=== PATIENT | male | born 1940 | race Caucasian/White ===

== ENCOUNTER 2019-12-17 12:49 | Inpatient (IN) | payer MEDICARE, MEDICAID ==
[~2019-12-17] VITALS: Ht 170.2 cm; Wt 63.2 kg
[~2019-12-17 12:49] MED LIST: CLARITIN10 MG PO; DELTASONE5 MG; DIFLUCAN150 MG PO; EES400 MG PO; ELIMITE 5%60 GM PO; KENALOG 0.025%15 GM PO; LINDANE60 ML TP; LOPRESSOR50 M1 PO; LOPRESSOR50 MG PO; ORAP1 MG PO; PALMITATE-A5000 IU PO; VITAMIN C1 TAB PO; ZITHROMAX Z PA250 MG PO; [UNRECOGNIZED DRUG - OTHER] PO; [UNRECOGNIZED DRUG - OTHER] PO
[2019-12-17 12:50] VITALS: BP 106/77
[2019-12-17] MEDS ORDERED: AMLODIPINE BESYL5 MG PO (13:40)
[2019-12-17] MEDS ORDERED: COZAAR50 M1 PO (13:42)
[2019-12-17 13:43] LABS: HEMATOCRIT 44.6 % (42.0-52.0); HEMOGLOBIN 14.8 g/dl (14.0-18.0); MEAN CELL VOLUME 95.5 fl (80.0-94.0); MEAN CORPUSCULAR HGB 31.7 pg (27.0-31.0); MEAN CORPUSCULAR HGB CONC 33.2 g/dl (33.0-37.0); MEAN PLATELET VOLUME 10.9 fl (9.6-12.3); PLATELET COUNT AUTOMATED 257 10*3/uL (130-400); RED BLOOD COUNT 4.67 10*6/uL (4.50-5.90); WHITE BLOOD COUNT 20.3 10*3/uL (4.8-10.8)
[2019-12-17] MEDS ORDERED: SODIUM CHLORIDE1 GM PO (13:43)
[2019-12-17] MEDS ORDERED: FEROSUL325 MG PO (13:44)
[2019-12-17] MEDS ORDERED: HYDROXYZINE HCL25 MG PO (13:45)
[2019-12-17 13:54] LABS: ALBUMIN 3.5 gm/dl (3.1-4.5); CREATININE 1.46 mg/dL (0.70-1.30); POTASSIUM 3.8 mmol/L (3.5-5.1); TOTAL PROTEIN 7.3 gm/dL (6.4-8.2)
[2019-12-17 13:57] LABS: OVALOCYTES FEW; PLATELET SUFFICIENCY NORMAL (NORMAL); POLYCHROMASIA SLIGHT; TOTAL CELLS COUNTED 100 #CELLS
[2019-12-17 14:41] LABS: CLARITY CLEAR (CLEAR); COLOR YELLOW (YELLOW); GLUCOSE NEGATIVE (NEGATIVE)
[2019-12-17 14:42] LABS: BILIRUBIN NEGATIVE (NEGATIVE); BLOOD 3+ (NEGATIVE); EPITHELIAL CELLS 0-2; KETONE TRACE (NEGATIVE); LEUKO ESTERASE TRACE (NEGATIVE); NITRITE NEGATIVE (NEGATIVE); RBC 0-2 rbc/hpf (0-2); UROBILINOGEN 0.2 E.U./dl (0.2-1.0)
[2019-12-17 14:43] LABS: BACTERIA 2+; HYALINE CAST 0-2; MUCOUS TRACE
[2019-12-17 16:00] VITALS: BP 160/43
[2019-12-17 17:00] VITALS: BP 152/78
[2019-12-17 17:30] VITALS: BP 110/60
[2019-12-17 19:14] VITALS: BP 118/86
[2019-12-17 20:35] VITALS: BP 138/72
[2019-12-18] VITALS: BP 121/82
[2019-12-18 07:07] LABS: HEMATOCRIT 40.7 % (42.0-52.0); HEMOGLOBIN 13.5 g/dl (14.0-18.0); MEAN CELL VOLUME 96.7 fl (80.0-94.0); MEAN CORPUSCULAR HGB 32.1 pg (27.0-31.0); MEAN CORPUSCULAR HGB CONC 33.2 g/dl (33.0-37.0); MEAN PLATELET VOLUME 11.1 fl (9.6-12.3); PLATELET COUNT AUTOMATED 229 10*3/uL (130-400); RED BLOOD COUNT 4.21 10*6/uL (4.50-5.90); RED CELL DISTRI WIDTH 14.6 % (0-14.5)
[2019-12-18 07:30] LABS: ALBUMIN 2.9 gm/dl (3.1-4.5); ALKALINE PHOSPHATASE 100 U/L (45-117); CHLORIDE 111 mmol/L (98-107); CHOLESTEROL 157 mg/dL (<200); CREATININE 0.99 mg/dL (0.70-1.30); FREE T4 1.16 ng/dl (0.76-1.46); HDL CHOLESTEROL 78 mg/dl (40-60); LDL CHOLESTEROL 65 mg/dL (9-159); PHOSPHOROUS 2.4 mg/dL (2.5-4.9); POTASSIUM 3.9 mmol/L (3.5-5.1); SGOT/AST 185 IU/L (3-35); SGPT/ALT 107 U/L (12-78); SODIUM 144 mmol/L (136-145); TOTAL PROTEIN 6.5 gm/dL (6.4-8.2); TRIGLYCERIDES 72 mg/dl (<150); VLDL CHOLESTEROL 14 mg/dL (6-40)
[2019-12-18 07:38] LABS: VITAMIN D, 25-HYDROXY 114.1 ng/mL (30-100)
[2019-12-18 07:54] LABS: BUN 46 mg/dl (7-24)
[2019-12-18 08:01] LABS: PLATELET SUFFICIENCY NORMAL (NORMAL); TOTAL CELLS COUNTED 100 #CELLS; VACUOLATION OF NEUTROPHILS SLIGHT
[2019-12-18 08:02] LABS: POLYCHROMASIA SLIGHT
[2019-12-18 12:00] VITALS: BP 121/59
[2019-12-18 16:00] VITALS: BP 132/80
[2019-12-18 20:00] VITALS: BP 150/65
[2019-12-19] VITALS: BP 125/74
[2019-12-19 06:19] LABS: BASO % 0.2 % (0.0-1.0); HEMATOCRIT 38.5 % (42.0-52.0); HEMOGLOBIN 12.5 g/dl (14.0-18.0); LYMPH # 1.3 10*3/uL (1.3-4.4); LYMPH % 11.8 % (27.0-41.0); MEAN CORPUSCULAR HGB 31.5 pg (27.0-31.0); MEAN CORPUSCULAR HGB CONC 32.5 g/dl (33.0-37.0); MEAN PLATELET VOLUME 11.7 fl (9.6-12.3); MONO # 1.1 10*3/uL (0.1-1.0); MONO % 10.2 % (3.0-9.0); NEUT # 8.7 10*3/uL (2.3-7.9); NEUT % 77.3 % (47.0-73.0); PLATELET COUNT AUTOMATED 183 10*3/uL (130-400); RED BLOOD COUNT 3.97 10*6/uL (4.50-5.90); RED CELL DISTRI WIDTH 14.5 % (0-14.5); WHITE BLOOD COUNT 11.2 10*3/uL (4.8-10.8)
[2019-12-19 06:37] LABS: ALBUMIN 2.7 gm/dl (3.1-4.5); ALKALINE PHOSPHATASE 86 U/L (45-117); CHLORIDE 111 mmol/L (98-107); CREATININE 0.62 mg/dL (0.70-1.30); POTASSIUM 3.9 mmol/L (3.5-5.1); SGOT/AST 125 IU/L (3-35); SGPT/ALT 105 U/L (12-78); SODIUM 143 mmol/L (136-145); TOTAL PROTEIN 6.1 gm/dL (6.4-8.2)
[2019-12-19 06:53] LABS: BUN 28 mg/dl (7-24); CPK 1499 U/L (39-308)
[2019-12-19 12:00] VITALS: BP 148/84
[2019-12-19 16:00] VITALS: BP 133/83
[2019-12-19 20:00] VITALS: BP 144/86
[2019-12-20] VITALS: BP 131/81
[2019-12-20 06:06] LABS: HEP B CORE AB, IGM Negative (Negative); HEPATITIS B SURFACE AG Negative (Negative); HEPATITIS C VIRUS ANTIBODY <0.1 s/co (0.0-0.9)
[2019-12-20 07:13] LABS: BASO % 0.2 % (0.0-1.0); EOS # 0.1 10*3/uL (0.0-0.4); EOS % 0.5 % (1.0-4.0); HEMATOCRIT 34.6 % (42.0-52.0); HEMOGLOBIN 11.1 g/dl (14.0-18.0); LYMPH # 1.6 10*3/uL (1.3-4.4); LYMPH % 15.5 % (27.0-41.0); MEAN CORPUSCULAR HGB 31.4 pg (27.0-31.0); MEAN CORPUSCULAR HGB CONC 32.1 g/dl (33.0-37.0); MEAN PLATELET VOLUME 11.1 fl (9.6-12.3); MONO # 1.1 10*3/uL (0.1-1.0); MONO % 10.7 % (3.0-9.0); NEUT # 7.3 10*3/uL (2.3-7.9); NEUT % 72.4 % (47.0-73.0); PLATELET COUNT AUTOMATED 191 10*3/uL (130-400); RED BLOOD COUNT 3.53 10*6/uL (4.50-5.90); RED CELL DISTRI WIDTH 14.4 % (0-14.5); WHITE BLOOD COUNT 10.1 10*3/uL (4.8-10.8)
[2019-12-20 07:40] LABS: BUN 20 mg/dl (7-24); CHLORIDE 110 mmol/L (98-107); CREATININE 0.44 mg/dL (0.70-1.30); POTASSIUM 3.6 mmol/L (3.5-5.1); SODIUM 143 mmol/L (136-145)
[2019-12-20 08:00] VITALS: BP 148/90
[2019-12-20 12:00] VITALS: BP 108/58
[2019-12-20 16:00] VITALS: BP 117/68
[2019-12-20 20:00] VITALS: BP 123/80
[2019-12-21] VITALS: BP 127/78
[2019-12-21 07:10] LABS: BUN 19 mg/dl (7-24); CHLORIDE 107 mmol/L (98-107); CREATININE 0.48 mg/dL (0.70-1.30); POTASSIUM 3.3 mmol/L (3.5-5.1); SODIUM 141 mmol/L (136-145)
[2019-12-21 08:00] VITALS: BP 148/92
[2019-12-21] MEDS ORDERED: KEFLEX250 MG PO (10:23)
== END 2019-12-21 12:35 | disposition other institution (70) | DRG 871 ==
LOC: ED 12:49 → 4E 17:54 → EDHOLD 17:54 → 4E 19:38
PROVIDERS: Emergency Medicine; Family Medicine; Internal Medicine; ADMIT Internal Medicine
PROC: 0HBRXZZ Excision of Toe Nail, External Approach (ICD-10-PCS; principal; 2019-12-18)
DX: A41.9 Sepsis, unspecified organism (principal); N17.0 Acute kidney failure with tubular necrosis; L02.91 Cutaneous abscess, unspecified; T79.6XXA Traumatic ischemia of muscle, initial encounter; R65.20 Severe sepsis without septic shock; T68.XXXA Hypothermia, initial encounter; R74.0 Nonspecific elevation of levels of transaminase and lactic acid dehydrogenase [LDH]; R31.29 Other microscopic hematuria; E83.41 Hypermagnesemia; F20.9 Schizophrenia, unspecified; D64.9 Anemia, unspecified; E11.65 Type 2 diabetes mellitus with hyperglycemia; E83.39 Other disorders of phosphorus metabolism; E87.8 Other disorders of electrolyte and fluid balance, not elsewhere classified; I10 Essential (primary) hypertension; B35.1 Tinea unguium; E87.6 Hypokalemia; I07.1 Rheumatic tricuspid insufficiency; W18.30XA Fall on same level, unspecified, initial encounter; Z88.2 Allergy status to sulfonamides; Z79.899 Other long term (current) drug therapy; Z79.4 Long term (current) use of insulin; Y93.89 Activity, other specified; Y92.89 Other specified places as the place of occurrence of the external cause